=== PATIENT | male | born 1970 | race African-American/Black ===

== ENCOUNTER 2021-01-24 09:48 | Emergency (ER) | payer OTHER | END 2021-01-24 11:33 | disposition home or self-care (01) | LOC: CSHERS 09:48 | DX: M25.461 Effusion, right knee (principal); F17.210 Nicotine dependence, cigarettes, uncomplicated ==

== ENCOUNTER 2021-02-06 21:29 | Emergency (ER) | payer OTHER | END 2021-02-06 22:58 | disposition home or self-care (01) | LOC: CSHERS 21:29 | DX: M25.561 Pain in right knee (principal); F17.210 Nicotine dependence, cigarettes, uncomplicated; W22.8XXA Striking against or struck by other objects, initial encounter ==